=== PATIENT | female | born 1960 ===

== ENCOUNTER 2023-08-27 07:15 | Day surgery (SDC) | payer SELFPAY ==
[~2023-08-27 07:15] MED LIST: Sodium Chloride 0.9% 10 ML Syringe FLUSH PRN; Sodium Chloride 0.9% 10 ML Syringe FLUSH SCH
[2023-08-27] MEDS ORDERED: Naloxone 0.4 MG/ML SDV IVPUSH PRN (07:25)
[2023-08-27] MEDS ORDERED: Ondansetron 4 MG/2 ML SDV IVPUSH PRN (07:25)
[2023-08-27] MEDS ORDERED: HYDROmorphone 0.5 MG/0.5 ML Syringe IVPUSH PRN (07:25)
[2023-08-27] MEDS ORDERED: fentaNYL 100 MCG/2 ML SDV IVPUSH PRN (07:25)
[2023-08-27] MEDS: Lactated Ringers 1,000 ML IV SCH (07:35)
[2023-08-27] MEDS ORDERED: Midazolam 1 MG/ML 2 ML SDV ONE (07:41)
[2023-08-27] MEDS ORDERED: fentaNYL 100 MCG/2 ML SDV ONE (07:42)
[2023-08-27] MEDS ORDERED: Ketamine 500 mg/10 ML MDV ONE (07:42)
[2023-08-27] MEDS ORDERED: Propofol 200 MG/20 ML SDV ONE ×2 (07:42→07:45)
[2023-08-27] MEDS ORDERED: ceFAZolin 2 GM Vial ONE (07:50)
[2023-08-27] MEDS ORDERED: Ketorolac 30 MG/ML SDV ONE (07:51)
[2023-08-27] MEDS ORDERED: Ondansetron 4 MG/2 ML SDV ONE (08:30)
[2023-08-27] MEDS ORDERED: Sugammadex Sodium 200 MG/2 ML VIAL IV ONE (08:31)
[2023-08-27] MEDS ORDERED: Rocuronium 50 MG/5 ML Vial ONE (08:31)
[2023-08-27] MEDS ORDERED: oxyCODONE 5 MG Tab PO PRN (08:55)
[2023-08-27] MEDS: Tranexamic Acid 1,000 MG/10 ML Vial ONE (09:35)
[2023-08-27] MEDS: Vancomycin 1 GM SDV ONE (09:35)
[2023-08-27] MEDS ORDERED: HYDROmorphone 0.5 MG/0.5 ML Syringe ONE (09:35)
[2023-08-27] MEDS: Morphine 8 MG, EPINEPHrine 0.3 MG, Cefuroxime 750 MG, Ketorolac 30 MG, Sodium Chloride ... PRN (09:40)
[2023-08-27] MEDS ORDERED: Lactated Ringers 1,000 ML IV ONE (09:45)
[2023-08-27] MEDS: Bupivacaine 0.25% 10 ML SDV ONE (09:57)
[2023-08-27] MEDS: Triamcinolone Acetonide 40 MG/ML 1 ML SDV ONE (09:57)
[2023-08-27] MEDS ORDERED: Ropivacaine 0.5% 5 MG/ML 30 ML SDV ONE (10:18)
[2023-08-27] MEDS ORDERED: Lidocaine 1% 2 ML ONE (10:19)
[2023-08-27] MEDS: oxyCODONE 5 MG Tab PO PRN (12:47)
== END 2023-08-27 15:03 | disposition home or self-care (01) ==
LOC: JD.SDS 07:15
PROVIDERS: ATTEND Orthopaedic Surgery
DX: M17.12 Unilateral primary osteoarthritis, left knee (principal); E11.9 Type 2 diabetes mellitus without complications; I10 Essential (primary) hypertension; E78.5 Hyperlipidemia, unspecified; E66.9 Obesity, unspecified; Z79.82 Long term (current) use of aspirin; Z79.899 Other long term (current) drug therapy; Z79.84 Long term (current) use of oral hypoglycemic drugs
CPT/HCPCS: 0055T; 27447; 64447; 73560; 82947; 97110; 97161; A9270; C1713; C1776; J0171; J0665; J0690; J0697; J1170; J1885; J2250; J2270; J2405; J2704; J2795; J3010; J3301; J3370; J3490; J7120; 01402